=== PATIENT | male | born 1950 | race Caucasian/White ===

== ENCOUNTER 2018-01-21 11:07 | Emergency (ER) | payer BC, MEDICARE ==
[2018-01-21 11:35] LABS: HEMATOCRIT 41.2 % (42.0-52.0); HEMOGLOBIN 14.1 gm/dl (14.0-18.0); MEAN CELL VOLUME 92.6 fl (81-97); MEAN CORPUSCULAR HEMOGLOBIN 31.7 pg (27-33); MEAN CORPUSCULAR HGB CONC 34.2 g/dl (32-36); PLATELET COUNT 240 K/uL (130-400); RED BLOOD COUNT 4.45 M/uL (4.40-5.70); RED CELL DISTRIBUTION WIDTH 13.7 % (11.5-14.5); WHITE BLOOD COUNT W/O DIFF 10.5 K/uL (4.2-12.2)
--- NOTE | 2018-01-21 11:35 | Emergency Department Record ---
History of Present Illness - General Chief complaint: Extremity Problem Stated complaint: R WRIST HAND AREA INJURY Time Seen by Provider: 01/21/18 11:19 Source: Patient Mode of Arrival: Ambulatory Limitations: No limitations - History of Present Illness Initial comments: The patient is here due to R wrist pain for 3 days. 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 The patient denies any fall or injury or trauma. He was able to play golf yesterday with only minimal difficulty. Today the patient woke up with increased pain and significant swelling. The patient does have a hx of an old R wrist fracture that was operated on with hardware placed. He has no hx of similar issues. There has been no reported fever, chills , or any recent surgery or dental procedures. MD Complaint: Extremity pain, Extremity swelling Onset/Timin -: Days(s) Location: Right, Arm Severity scale (1-10): 10 Quality: Aching, Burning Consistency: Constant Improves with: Nothing Worsens with: Nothing Associated Symptoms: Denies other symptoms - Related Data Home Medications Medication Instructions Recorded Confirmed Last Taken Omeprazole [Prilosec] 20 mg PO DAILY 01/21/18 01/21/18 01/20/18 Previous Rx's Medication Instructions Recorded Ibuprofen [Motrin] 800 mg PO TID PRN #20 tab 01/21/18 Prednisone [Prednisone 20Mg] 40 mg PO DAILY #10 tab 01/21/18 Allergies Allergy/AdvReac Type Severity Reaction Status Date / Time naproxen [From Aleve] Allergy HIVES Verified 01/21/18 11:21 Travel Screening - Travel/Exposure Within Last 30 Days Have you traveled within the last 30 days?: Yes Location Detail:: [place] - Travel/Exposure Within Last Year Have you traveled outside the [place] in the last year?: No - Additonal Travel Details Have you been exposed to anyone with a communicable illness?: No - Travel Symptoms Symptom Screening: None Review of Systems Constitutional: Denies: Chills, Fever, Malaise Eyes: Denies: Eye discharge ENT: Denies: Congestion Respiratory: Denies: Cough, Dyspnea Past Medical History - SOCIAL HISTORY Smoking Status: Never smoker Alcohol Use: None Drug Use: None - RESPIRATORY Hx Respiratory Disorders: No - CARDIOVASCULAR Hx Cardio Disorders: No - NEURO Hx Neuro Disorders: No - GI Hx GI Disorders: Yes Hx Reflux: Yes - Hx Genitourinary Disorders: No - ENDOCRINE Hx Endocrine Disorders: No - MUSCULOSKELETAL Hx Musculoskeletal Disorders: No - PSYCH Hx Psych Problems: No - HEMATOLOGY/ONCOLOGY Hx Hematology/Oncology Disorders: No Family Medical History Any Significant Family History?: No Physical Exam - General General Appearance: Alert, Oriented x3, Cooperative, No acute distress - Head Head exam: Atraumatic, Normocephalic, Normal inspection - Eye Eye exam: Normal appearance, PERRL - Extremities Extremities exam: Joint swelling (There is significant swelling to the dorsal wrist.), Normal capillary refill, Tenderness (There is diffuse mild to moderate tenderness but no warmth, erythema, or bullae.). negative: Normal inspection ( There is mild to moderate swelling dorsally to the distal radius, ulna and carpal area.), Full ROM (There is decreased flexion and extension due to pain.) Course Vital Signs 01/21/18 11:11 Temperature 98.6 F Pulse Rate 74 Respiratory 16 Rate Blood Pressure 138/84 Pulse Ox 99 - Reevaluation(s) Reevaluation #1: The patient states he had hives once from [place]ve but can take Naprosyn and Motrin with no problems. 01/21/18 12:02 Reevaluation #2: I did discuss the results with the patient. I believe the pain and swelling are from overuse along with advanced arthritis changes. I strongly doubt any infection due to no fever, warmth, or erythema present. We will treat the patient with Nsaids and a short course of oral steroids and also splint the extremity. He is to see his PCP next week for recheck and return to the ER for any worsening symptoms. 01/21/18 12:05 Medical Decision Making - Data Complexity MDM Data: Labs Ordered and/or Reviewed, X-Ray Ordered and/or Reviewed - Lab Data Result diagrams: 01/21/18 11:28 01/21/18 11:28 - Radiology Data Radiology results: Report reviewed (R wrist: Post op changes with arthritis, O/ W neg.) Disposition Disposition: Discharge Clinical Impression: Wrist pain, acute Qualifiers: Laterality: right Qualified Code(s): M25.531 - Pain in right wrist Disposition: Home, Self-Care Condition: (2) Stable Instructions: Tendinitis (ED) Additional Instructions: Please wear the splint for 5-7 days and ice and elevate the wrist for the next 48 hours. Take Motrin and Prednisone as directed and return to the ER for any worsening symptoms, pain, fever, or redness. Please take the medicines with food. Prescriptions: Ibuprofen [Motrin] 800 mg PO TID PRN #20 tab PRN Reason: Pain Prednisone [Prednisone 20Mg] 40 mg PO DAILY #10 tab Forms: Patient Portal Access Time of Disposition: 12:09 Quality - Quality Measures Quality Measures: N/A - Blood Pressure Screening View Details: Yes Does Patient Have Any of the Following: No Blood Pressure Classification: Pre-Hypertensive BP Reading Systolic Measurement: 124 Diastolic Measurement: 80 Screening for High Blood Pressure: < Pre-Hypertensive BP, F/U Documented > [ [id number]] Pre-Hypertensive Follow-up Interventions: Referral to alternative/primary care provider.
[2018-01-21 11:44] LABS: PLATELET ESTIMATE NORMAL (NORMAL)
[2018-01-21 11:49] LABS: BLOOD UREA NITROGEN 10 mg/dL (8-23); CREATININE 0.7 mg/dL (0.7-1.2); EST GLOMERULAR FILTRATION RATE > 60 mL/min
[2018-01-21 11:52] LABS: GLUCOSE,RANDOM 126 mg/dL (74-109)
[2018-01-21 11:55] LABS: C-REACTIVE PROTEIN 1.69 mg/dL (<0.5)
[2018-01-21] MEDS ORDERED: KETOROLAC 30 MG/ML VIAL IM ONE (12:01)
--- NOTE | 2018-01-23 08:02 | RADIOLOGY REPORT ---
EXAM: RIGHT WRIST HISTORY: RIGHT WRIST PAIN AND SWELLING FOR THE PAST THREE DAYS. NO KNOWN INJURY. PREVIOUS WRIST SURGERY. TECHNIQUE: Five views of the right wrist were obtained. Comparison: None. FINDINGS: The patient is status post internal fixation of the distal radius. Plate and screw fixation as well as multiple percutaneous pin fragments are present. There is no acute fracture or dislocation. There are advanced arthritic changes within the radial carpal compartment with joint space narrowing, marginal osteophyte formation, and chondrocalcinosis. There is a positive ulnar variance. An old avulsion fracture is present adjacent to the ulnar styloid process. Moderate to severe arthritic changes are also present at the scaphotrapezial/trapezoidal articulations and at the first carpal metacarpal joint. Moderate arthritic changes and chondrocalcinosis are present within the metacarpal phalangeal joints. There is mild soft tissue swelling. There is no radiopaque foreign body. IMPRESSION: 1. STATUS POST INTERNAL FIXATION OF THE DISTAL RADIUS. 2. ADVANCED ARTHRITIC CHANGES WITHIN THE WRIST. 3. NO ACUTE OSSEOUS ABNORMALITY. JOB NUMBER: [id number] [facility]
== END 2018-01-21 12:39 | disposition home or self-care (01) ==
LOC: ER 11:07
DX: G89.11 Acute pain due to trauma (principal); M25.531 Pain in right wrist; X50.0XXA Overexertion from strenuous movement or load, initial encounter; X50.3XXA Overexertion from repetitive movements, initial encounter; Y92.69 Other specified industrial and construction area as the place of occurrence of the external cause; Y99.0 Civilian activity done for income or pay
CPT/HCPCS: 80048; 85027; 86140; 96372; 99283; J1885

== ENCOUNTER 2019-01-24 13:01 | Day surgery (SDC) | payer MEDICARE, OTHER ==
[2019-01-24] MEDS ORDERED: PROPOFOL 10 MG/ML VIAL IV ONE (13:02)
[2019-01-24] MEDS ORDERED: LIDOCAINE 2% MDV (20MG/ML) 20ML VIAL IV ONE (13:02)
--- NOTE | 2019-01-25 09:51 | Operative Note ---
OPERATION: COLONOSCOPY with cold forceps and cold snare polypectomies. PREOPERATIVE DIAGNOSIS: Personal history of colon polyps. POSTOPERATIVE DIAGNOSES: 1. Multiple colon polyps including 6 ascending colon, 3 transverse colon, and 1 descending colon polyp. 2. Sigmoid diverticulosis. PREPARATION QUALITY: Fair. ESTIMATED BLOOD LOSS: Minimum. SPECIMENS: Ascending colon, transverse colon, and descending colon. COMPLICATIONS: None apparent. PROCEDURE: After informed consent was obtained from the patient, he was placed in the left lateral decubitus position in the endoscopy suite, sedated and monitored by the department of anesthesia. Digital rectal exam was unremarkable. A well-lubricated [id number] colonoscope was inserted into the rectum and advanced through a tortuous and redundant colon with fair preparation. There were noted to be numerous colon polyps in the ascending colon. The cecum was unremarkable, however, as were the ileocecal valve and appendiceal orifice. There were 5 polyps in the ascending colon ranging in size from 4 to 7 mm, all removed with a cold snare and retrieved. There was 1 diminutive polyp removed with a cold forceps. Transverse colon revealed 3 polyps ranging in size from 5-7 mm all removed with a cold snare. There was also a 5 mm descending colon polyp removed with a cold snare. The sigmoid colon demonstrated [id number] diverticular changes. The rectum was unremarkable in forward and J-turn views. The endoscope was straightened, the rectal ampulla deflated, and the endoscope was removed. RECOMMENDATIONS: I would suggest the patient follow a high-fiber diet. I would recommend a repeat exam in 1 year based on the prep quality and multiple colon polyps. As always, thank you for allowing me to participate in the healthcare of your patients. NARCISA
== END 2019-01-24 14:39 | disposition home or self-care (01) ==
LOC: HOP 13:01
PROVIDERS: ATTEND Internal Medicine Gastroenterology
DX: Z12.11 Encounter for screening for malignant neoplasm of colon (principal); Z86.010 Personal history of colon polyps; D12.2 Benign neoplasm of ascending colon; D12.3 Benign neoplasm of transverse colon; K63.5 Polyp of colon; K57.30 Diverticulosis of large intestine without perforation or abscess without bleeding